=== PATIENT | male | born 1965 | race Caucasian/White ===

== ENCOUNTER → 2021-11-06 11:52 | Outpatient (CLI) | payer BC, SELFPAY ==
--- NOTE | 2021-11-06 11:55 | DI.RAD.S_ITS ---
PROCEDURE: XR FOREARM RT 2V INDICATIONS: fall, right extremity pain TECHNIQUE: 2 views of the forearm were acquired. COMPARISON: None. FINDINGS: Bones: No fractures or dislocations. No suspicious bony lesions. Soft tissues: No suspicious soft tissue calcifications or masses. IMPRESSION: No forearm fracture or dislocation. Dictated by: Dwayne Hall M.D. on 11/06/2021 at 13:07 Approved by: Dwayne Hall M.D. on 11/06/2021 at 13:07
--- NOTE | 2021-11-06 11:55 | DI.RAD.S_ITS ---
PROCEDURE: XR WRIST RT MIN 3V INDICATIONS: fall, right extremity pain TECHNIQUE: 3 views of the wrist were acquired. COMPARISON: None. FINDINGS: Bones: No fractures or dislocations. No suspicious bony lesions. Scaphoid view: Scaphoid is grossly intact. Soft tissues: No suspicious soft tissue calcifications. IMPRESSION: No wrist fracture or dislocation. Dictated by: Dwayne Hall M.D. on 11/06/2021 at 13:06 Approved by: Dwayne Hall M.D. on 11/06/2021 at 13:07
== END ==
PROVIDERS: PCP Student in an Organized Health Care Education/Training Program; Referring Provider Nurse Practitioner Family; Visit Provider Nurse Practitioner Family
DX: M79.631 Pain in right forearm (principal)
CPT/HCPCS: 73090; 73110

== ENCOUNTER 2024-04-18 08:46 | Day surgery (SDC) | payer BC, SELFPAY ==
--- NOTE | 2024-04-18 | PATH_ITS ---
[facility] Accession Number: [id number] No. of containers..04 Tissue . 01 Material submitted: . PART A: gastrointestinal site - ANTRUM PART B: gastrointestinal site - GASTRIC POLYP PART C: colon - CECUM PART D: colon - DESCENDING BIOPSY . 01 Diagnosis: A. Stomach, antrum, biopsy: Antral gastric mucosa with unremarkable histology. No H. Pylori like organisms identified (on the H/E- stained sections). Negative for gastritis, intestinal metaplasia, dysplasia, or malignancy. -- B. stomach, polyp, biopsy: Histologic features suggestive of fundic gland polyp. No H. Pylori like organisms identified (on the H/E- stained sections). Negative for gastritis, intestinal metaplasia, dysplasia, or malignancy. -- C. Colon, cecum, biopsy: Benign colonic mucosa with mild active colitis and benign lymphoid aggregate. Negative for chronic colitis, granuloma, dysplasia, or malignancy. See comment. --- D. Colon, descending, biopsy: Benign colonic mucosa with benign lymphoid aggregate. Negative for microscopic colitis, dysplasia, or malignancy. . Comment for part C: The histologic findings are suggestive of inflammatory polyp in the right colonoscopic setting. TXN 04/21/2024 [facility]2 Local . 01 Electronically signed: . Cande Purdy MD, Pathologist NPI- [id number] . 01 Gross description: . A. Received in formalin with two patient identifiers and antrum, is a single ramon soft tissue fragment, 0.4 cm in greatest dimension. Submitted in A1. B. Received in formalin with two patient identifiers and gastric polyp are two ramon soft tissue fragments, 0.2 to 0.3 cm in greatest dimension. Submitted entirely in B1. C. Received in formalin with two patient identifiers and cecum, is a single ramon soft tissue fragment, 0.4 cm in greatest dimension. Submitted in C1. D. Received in formalin with two patient identifiers and descending, are two ramon soft tissue fragments, 0.2 to 0.5 cm in greatest dimension. Submitted entirely in D1. ([id number]) /MRV 04/19/2024 1452 Local . 01 Pathologist provided ICD-10: R10.13 . 01 CPT . 279937, 909149, 273002, 211864 Specimen Comment: A courtesy copy of this report has been sent to [phone] Performed at: [address] [address], [place], [place] [id number] MD Naif Grant MD Phone: [phone]
--- NOTE | 2024-04-18 09:13 | PM.HP.1 ---
History of Present Illness History of Present Illness Date Patient Seen: 04/18/24 Time Patient Seen: 09:13 Chief complaint: EGD & Colonoscopy w/poss bx's Narrative: Here for EGD and colonoscopy. I reviewed the recent clinic note by . The patient has had some improvement on b.i.d. PPI but continues to get occasional breakthrough pyrosis in the mid chest. He reports 2 prior colonoscopies. The 1st had a polyp with a 3 year follow-up exam. At that exam no polyps were found but he was recommended to come back in 5 years. 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) other: mentions his OA is from years of moutain biking Smoking Status: Never smoker alcohol intake: current (1 drink weekly) substance use type: does not use Meds Home Medications and Allergies Home Medications Medication Instructions Recorded Confirmed Type No Known Home Medications 11/06/21 History Allergies Allergy/AdvReac Type Severity Reaction Status Date / Time No Known Drug Allergies Allergy Verified 11/06/21 11:34 Review of Systems Review of Systems ROS: Yes All systems reviewed with the patient and are negative except as otherwise documented Exam Const General: cooperative HENMT Head: normal to inspection Eyes General: appearance normal, both eyes and all related structures Neck Neck: normal visual inspection Chest Chest: normal inspection of the chest Resp Effort & Inspection: normal respiratory effort Cardio Rate: regular rate GI Inspection: normal to inspection Skin General: no rashes or lesions noted Neuro General: patient alert and patient awake Extrem General: normal to inspection and no pedal edema Psych Appearance: grossly normal Assessment & Plan Assessment & Plan narrative: 59-year-old male with refractory reflux symptoms and a personal history of colon polyps. EGD and colonoscopy are pursued today.
--- NOTE | 2024-04-18 09:15 | PM.PREOP ---
Pre-operative Note Interval Note History & Physical reviewed/Exam performed by Physician: Yes Changes to H&P: Yes ASA Class (for procedural sedation): II
[2024-04-18 09:19] VITALS: BP 139/87; PULSE 77; RESP 17; TEMP 36.6; O2SAT 96
[2024-04-18] MEDS: LACTATED RINGERS 1,000 ML 42 ML IV (09:30)
--- NOTE | 2024-04-18 10:36 | P.OP.EGD&C_ITS ---
Operative Date/Time/Diagnoses Date of procedure: 04/18/24 Time of procedure: 10:37 Pre-op diagnosis: Here for refractory heartburn symptoms and a personal history of colon polyps. Post-op diagnosis: same Procedure & Clinicians Study performed: EGD with biopsies and colonoscopy with cold snare polypectomy and cold forceps biopsies Same procedure as scheduled: Yes Indications: History of refractory heartburn symptoms and personal history of colon polyps Surgeon: Can Rosado Procedure Notes SCOAP/Timeout: Done Procedure in detail: After the risks and benefits were explained, written and verbal informed consent was obtained. The patient was brought into the procedure room and placed into the left lateral decubitus position. Please see anesthesia notes for sedation details. The scope was introduced into the mouth through the bite block and advanced under direct visualization to the 2nd portion of the duodenum. The scope was slowly withdrawn carefully examining the mucosa for any defects or lesions. Retroflexed views were accomplished in the stomach. The stomach was decompressed, the scope was then removed from the patient who tolerated the procedure well. The patient was then turned around. A digital rectal examination was accomplished. The scope was introduced into the rectum and advanced to the cecum as identified by the appendiceal orifice and ileocecal valve. The scope was slowly withdrawn to carefully examine the mucosa for any defects or lesions. Multiple direct views were made through the dentate line for exclusion of pathology. The colon was decompressed and the scope removed from the patient who tolerated the procedure well. Adult colonoscope Bowel prep adequate Scope withdrawal time: 14 minutes Sedation minutes: 47 Complications: none Impression: 1. Duodenal: This was normal from the bulb through to the 2nd portion. 2. Stomach: No ulcers. No mass lesions. No outlet obstruction. Mild gastropathy was identified in the antrum and biopsies were taken for exclusion of H pylori. There were a few diminutive benign-appearing polyps in the prox imal stomach. A couple of these were removed with cold forceps for a collections representative sample. Retroflexed views of the LES were otherwise unremarkable. 3. Esophagus: The squamocolumnar junction correlated with the top of the gastric folds. The GEJ was at approximately 44 cm from the incisors. The patient had a sharp well demarcated normal-appearing Z-line right at the GE junction. There was no sign of stricture. No sign of esophagitis. The remainder of the esophagus was visually normal. 4. Colon: Patient had a slightly redundant colon. In the cecum there was a possible subtle polyp measuring 5 mm that was addressed with cold snare. In the proximal descending colon right near the splenic flexure there was a subtle nodular erosion. I did not appreciate any obvious adenomatous features but a couple of biopsies were taken from this location for histopathologic analysis. No other significant pathology was appreciated throughout. Grade 1 hemorrhoids were noted on direct views. Endoscopic diagnosis 1. Minimal gastropathy 2. Diminutive gastric polyps 3. Otherwise visually normal EGD 4. Diminutive cecal polyp 5. Descending colon eroded subtle nodule-biopsied 6. Minimal hemorrhoids Post-procedure Plan for aftercare: 1. Await histology. 2. Follow up GI clinic. 3. Continue anti-reflux therapy. 4. The timing of repeat colonoscopy will be contingent on biopsy results. Disposition: PACU
[2024-04-18 10:39] VITALS: BP 104/73; PULSE 70; RESP 16; TEMP 36.4; O2SAT 98
[2024-04-18 10:44] VITALS: BP 111/78; PULSE 68; RESP 16; O2SAT 97
[2024-04-18 10:49] VITALS: BP 108/78; PULSE 67; RESP 16; O2SAT 97
[2024-04-18 10:53] VITALS: BP 108/77; PULSE 68; RESP 14; O2SAT 99
== END 2024-04-18 11:00 | disposition home or self-care (01) ==
PROVIDERS: PCP Physician Assistant; Referring Provider Internal Medicine Gastroenterology; Visit Provider Internal Medicine Gastroenterology
PROC: 0DJ08ZZ Inspection of Upper Intestinal Tract, Via Natural or Artificial Opening Endoscopic (ICD-10-PCS; CPT 43235; principal; 2024-04-18 10:00)
PROC: 0DJD8ZZ Inspection of Lower Intestinal Tract, Via Natural or Artificial Opening Endoscopic (ICD-10-PCS; CPT 45378; 2024-04-18 10:00)
DX: Z12.11 Encounter for screening for malignant neoplasm of colon (principal); Z86.010 Personal history of colon polyps; R12 Heartburn; K31.9 Disease of stomach and duodenum, unspecified; K31.7 Polyp of stomach and duodenum; K64.8 Other hemorrhoids; K52.9 Noninfective gastroenteritis and colitis, unspecified
CPT/HCPCS: 45385; 43239; J2704

== ENCOUNTER → 2024-08-08 08:39 | Outpatient (CLI) | payer BC, SELFPAY ==
--- NOTE | 2024-08-08 08:42 | DI.RAD.S_ITS ---
PROCEDURE: XR FOOT RT MIN 3V INDICATIONS: BUNION TECHNIQUE: 4 views of the foot were acquired. COMPARISON: None. FINDINGS: Bones: No fracture or dislocation. Hallux valgus deformity of the MTP joint of the 1st toe with associated bunion. Mild degree of joint space narrowing of the MTP joint of the 2nd toe. Joint spaces of the right foot appear otherwise unremarkable. No suspicious bony lesions. Soft tissues: No tibiotalar joint effusion. Achilles tendon appears normal. IMPRESSION: Hallux valgus deformity of MTP joint of the 1st toe with associated bunion. No acute osseous abnormality. Dictated by: Kevon Jaimes M.D. on 08/08/2024 at 10:35 Approved by: Kevon Jaimes M.D. on 08/08/2024 at 10:37
--- NOTE | 2024-08-08 08:42 | DI.RAD.S_ITS ---
PROCEDURE: XR FOOT LT MIN 3V INDICATIONS: BUNION TECHNIQUE: 4 views of the foot were acquired. COMPARISON: None. FINDINGS: Bones: No acute fracture or dislocation. Mild hallux valgus deformity of the MTP joint of the great toe. Degenerative changes involving the interphalangeal joint of the great toe. Small osteochondroma arising from the lateral aspect of the 1st metatarsal. A slightly smaller osteochondroma is seen involving the medial aspect of the base of the distal phalanx of the great toe. Soft tissues: No tibiotalar joint effusion. Achilles tendon appears normal. IMPRESSION: 1. Mild hallux valgus deformity of the MTP joint of the great toe. 2. Small osteochondromas arising from the lateral aspect of the 1st metatarsal and smaller osteochondroma involving the medial aspect of the base of distal phalanx of the great toe. Dictated by: Kevon Jaimes M.D. on 08/08/2024 at 10:37 Approved by: Kevon Jaimes M.D. on 08/08/2024 at 10:43
== END ==
LOC: RAD 08:40
PROVIDERS: PCP Physician Assistant; Referring Provider Podiatrist Foot & Ankle Surgery; Visit Provider Podiatrist Foot & Ankle Surgery
DX: M20.12 Hallux valgus (acquired), left foot (principal); M20.11 Hallux valgus (acquired), right foot; M21.611 Bunion of right foot; M21.612 Bunion of left foot; D16.32 Benign neoplasm of short bones of left lower limb; D16.31 Benign neoplasm of short bones of right lower limb
CPT/HCPCS: 73630

== ENCOUNTER 2024-10-03 12:57 | Day surgery (SDC) | payer BC, SELFPAY ==
[2024-09-30 08:28] VITALS: BMI 26.2
--- NOTE | 2024-10-03 09:52 | PM.PREOP ---
Pre-operative Note Interval Note History & Physical reviewed/Exam performed by Physician: Yes Changes to H&P: No
--- NOTE | 2024-10-03 09:52 | PM.HP.1 ---
History of Present Illness History of Present Illness Chief complaint: R foot Narrative: 59 year old male here for right foot pain. Incidental finding of bone tumors observed on X-rays of both feet. He denies any family history of bone cancers. He would like to proceed with correction of bunion and joint instability as the pain inhibits his activities of daily living. He reports that it was initially managed by increasing shoe size, but it now affects walking with overlapping of the second toe. He describes the pain as deep, similar to a broken toe, with a combination of throbbing and sharp sensations. The pain is not localized and is accompanied by swelling, making it feel like walking on a water balloon. Patient denies n/v/f/c/sob/cp. [facility] Medical History Chronic eczematous otitis externa of right ear Elevated BP without diagnosis of hypertension Snoring Fatigue due to sleep pattern disturbance Osteoarthritis involving multiple joints on both sides of body Allergic rhinitis Obstructive sleep apnea, adult BPH (benign prostatic hyperplasia) GERD (gastroesophageal reflux disease) Surgical History (Updated 09/30/24 @ 08:46 by Madison Velásquez RN) Hx of colonoscopy (04/18/24) History of tonsillectomy Family History Father Blood clotting disorder Social History household members: spouse lives independently: Yes caregiver/support person: No housing: house 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) other: mentions his OA is from years of moutain biking Smoking Status: Never smoker alcohol intake: current substance use type: does not use Meds Home Medications and Allergies Home Medications Medication Instructions Recorded Confirmed Type losartan 25 mg tablet 25 mg PO DAILY 04/18/24 04/18/24 History omeprazole 20 mg tablet,delayed 20 mg PO DAILY 04/18/24 04/18/24 History release Allergies Allergy/AdvReac Type Severity Reaction Status Date / Time No Known Drug Allergies Allergy Verified 11/06/21 11:34 Exam Extrem Right lower extremity: foot Other: Right foot: Moderate hallux abducto valgus with enlarged medial eminence and overriding toe 2. Hypermobile ray 1. Moderate heel valgus and collapsed medial longitudinal arch. Assessment & Plan Assessment & Plan narrative: 1. Right foot flail tarsometatarsal joint(s) 2. Right foot bunion 3. Right foot osteochondroma Patient seen and evaluated. Surgical plan: right foot tarsometatarsal single joint arthrodesis with bone graft harvest, bunion correction, and excision of benign bone tumor. Risks and benefits of the procedure discussed with all questions answered to patient's satisfaction. Reviewed potential complications that may include but not limited to the following: DVT, failure to resolve all symptoms, infection, nerve injury, bleeding, recurrence, or wound. Reviewed surgical technique and general aftercare protocols. All questions answered to patient's satisfaction with no guarantees made. Patient verbalized understanding and agreed with surgical plan. RTC for post-op. Time-Based Coding :: [TOTAL MINUTES] spent with patient and on the chart (including review of chart, obtaining history, exam, reviewing outside data, placing orders, documenting exam and treatment plan, and counseling patient) on [DATE].
[2024-10-03 13:19] VITALS: BP 157/91; PULSE 80; RESP 17; TEMP 37.1; O2SAT 98; BMI 24.4
[2024-10-03] MEDS: LACTATED RINGERS 1,000 ML 100 ML IV ×2 (13:47→13:50)
[2024-10-03] MEDS: ACETAMINOPHEN 325 MG TABLET 975 MG PO (13:49)
[2024-10-03] MEDS: CEFAZOLIN 2 GM/100 ML PREMIX 100 ML IV (14:40)
--- NOTE | 2024-10-03 15:13 | SUR.OPER ---
Supine on padded OR bed, head on pillow, arms secured on padded arm boards at <90 degrees abduction, legs uncrossed, safety belt at thigh, tape over blanket over lower legs.
[2024-10-03] MEDS: VANCOMYCIN 1,000 MG VIAL 1000 MG TOP (18:00)
[2024-10-03 18:53] VITALS: BP 133/90; PULSE 92; RESP 15; TEMP 36.3; O2SAT 99
[2024-10-03 18:58] VITALS: BP 119/83; PULSE 94; RESP 10; O2SAT 97
[2024-10-03 19:03] VITALS: BP 126/87; PULSE 94; RESP 11; O2SAT 97
[2024-10-03 19:07] VITALS: BP 127/88; PULSE 91; RESP 15; O2SAT 97
[2024-10-03 19:17] VITALS: BP 135/91; PULSE 83; RESP 15; TEMP 36.3; O2SAT 97
[2024-10-03] MEDS: OXYCODONE IR 5 MG TABLET PO (19:19)
--- NOTE | 2024-10-13 18:51 | PM.OP.1 ---
Operative Date/Time/Diagnoses Date of procedure: 10/03/24 Pre-op diagnosis: 1. Right foot first tarsometatarsal flail joint 2. Right foot bunion Post-op diagnosis: same Procedure & Clinicians Procedure: 1. Right foot first tarsometatarsal arthrodesis 2. Right foot bunion correction Same procedure as scheduled: Yes Indications: Chronic discomfort with progressive worsening Surgeon: Main Peters Click Yes if Unassisted: Yes Anesthesia Type: General Operative Notes Findings: Consistent with diagnosis Closure Type: primary Specimen(s): none sent Estimated Blood Loss (mL): 50 Tourniquet time (min): 150 Procedure in detail: The patient was brought to the operating room and placed on the operating room table in the supine position. Regional anesthesia was administered by anesthesiologist. A thigh tourniquet was applied over well-padded surface, which was set and inflated to 300 mmHg prior to incision. The right lower limb was then prepped and draped in the usual sterile fashion, followed by official timeout with the surgical team all in agreement. Attention was directed to the right midfoot at dorsal first ray where a linear incision was using a #15 scalpel. Dissection was carried out in layers from skin down to the joint and bone with care for retraction and protection of neurovascular structures. The first tarsometatarsal joint was identified and sharply released. Attention was then directed to the right forefoot dorsal first ray where a linear incision was made over lateral first metatarsophalangeal joint using a # 15 scalpel for lateral release of suspensory ligament. Following manufacture instructions, frontal plane was rotated until anatomical alignment was restored. Appropriate cuts of the first tarsometatarsal joint were then made using a sagittal saw under power, and the the joint was prepared via fenestration and addition of bone putty. Compression was then achieved using olive wires. After adequate position was achieved, the arthrodesis was completed with double plating and verified using fluoroscopy. Attention was then directed back to the right forefoot. A linear incision was made using # 15 scalpel over dorsal hallux. A medal based wedge osteotomy of the proximal phalanx was then performed, and the gap was closed using a 2.5 mm headless screw and verified using fluoroscopy. All surgical sites were irrigated using copious saline and closed from deep to superficial in layers using 2-0 vicryl, 3-0 vicryl, 4-0 vicryl, 3-0 nylon, and 4-0 nylon. Vancoycin powder was added prior to full closure. Right foot was cleaned, and sterile dressing was applied over incision site with iodine soaked Adaptic, gauze, abdominal pad, and Kerlix. A posterior splint was made and secured with JOSE JUAN bandages. Patient tolerated procedure without complication and was transferred to post-anesthesia care unit with all vital signs stable. Complications: none Post-operative Condition: stable Disposition: same day surgery Plan for aftercare: Non-weight bearing to surgical limb. Elevate above heart. Ice behind knee. Keep dressing clean, dry, and intact.
== END 2024-10-03 19:28 | disposition home or self-care (01) ==
PROVIDERS: PCP Physician Assistant; Referring Provider Podiatrist Foot & Ankle Surgery; Visit Provider Podiatrist Foot & Ankle Surgery
PROC: (CPT 28740; principal; 2024-10-03 14:15)
PROC: 0QBN0ZZ Excision of Right Metatarsal, Open Approach (ICD-10-PCS; CPT 28292; 2024-10-03 14:15)
DX: M25.271 Flail joint, right ankle and foot (principal); M21.611 Bunion of right foot; D16.31 Benign neoplasm of short bones of right lower limb; G89.18 Other acute postprocedural pain
CPT/HCPCS: 28740; 28298; 64450; C1713; J0690; J1100; J2250; J2405; J2704; J3010

== ENCOUNTER → 2024-10-18 | Outpatient (CLI) | payer BC, SELFPAY ==
--- NOTE | 2024-10-18 | DI.RAD.S_ITS ---
PROCEDURE: XR FOOT RT MIN 3V INDICATIONS: Pain in right foot TECHNIQUE: 3 views of the foot were acquired. COMPARISON: [facility], CR, XR FOOT RT MIN 3V, 08/08/2024, 8:52. [facility], CR, XR FOOT LT MIN 3V, 08/08/2024, 8:52. FINDINGS: Bones: Interval 1st TMT joint arthrodesis with expected the positioning of plate and screw fixation hardware. Interval 1st proximal phalangeal osteotomy with placement of a fully threaded micro fixation screw. Expected bony alignment. Soft tissues: No tibiotalar joint effusion. Achilles tendon appears normal. Soft tissue swelling adjacent to the medial aspect of the 1st MTP joint. IMPRESSION: Interval 1st TMT joint arthrodesis and osteotomy of the 1st proximal phalangeal base. Dictated by: Krishna Hairston [facility] Interpreted: Jay Arevalo MD on 10/18/2024 at 14:00 Transcribed by: NOAH on 11/04/2024 at 12:27 Approved by: Halina Basurto M.D. on 11/10/2024 at 21:32
== END ==
PROVIDERS: PCP Physician Assistant; Referring Provider Podiatrist Foot & Ankle Surgery; Visit Provider Podiatrist Foot & Ankle Surgery
DX: M79.671 Pain in right foot (principal); Z47.89 Encounter for other orthopedic aftercare
CPT/HCPCS: 73630

== ENCOUNTER → 2024-10-31 13:39 | Outpatient (CLI) | payer BC, SELFPAY ==
--- NOTE | 2024-10-31 13:42 | DI.RAD.S_ITS ---
PROCEDURE: XR FOOT RT MIN 3V INDICATIONS: FOOT PAIN TECHNIQUE: 3 views of the foot were acquired. COMPARISON: [facility], CR, XR FOOT RT MIN 3V, 10/18/2024, 12:01. [facility], CR, XR FOOT LT MIN 3V, 08/08/2024, 8:52. FINDINGS: Bones: 1st tarsometatarsal arthrodesis, with normal alignment and no hardware complication. 1st proximal phalanx osteotomy, without hardware complication. Soft tissues: No tibiotalar joint effusion. Achilles tendon appears normal. IMPRESSION: Stable arthrodesis and osteotomy of the 1st digit, without hardware complication. Dictated by: Luis Tellez M.D. on 10/31/2024 at 16:49 Approved by: Luis Tellez M.D. on 10/31/2024 at 16:49
== END ==
PROVIDERS: PCP Physician Assistant; Referring Provider Podiatrist Foot & Ankle Surgery; Visit Provider Podiatrist Foot & Ankle Surgery
DX: M79.671 Pain in right foot (principal); Z98.1 Arthrodesis status
CPT/HCPCS: 73630

== ENCOUNTER → 2024-11-22 10:03 | Outpatient (CLI) | payer BC, SELFPAY ==
--- NOTE | 2024-11-22 10:05 | DI.RAD.S_ITS ---
PROCEDURE: XR FOOT RT MIN 3V INDICATIONS: FOOT PAIN TECHNIQUE: 3 views of the foot were acquired. COMPARISON: [facility], CR, XR FOOT RT MIN 3V, 10/31/2024, 13:49. FINDINGS: Bones: Single screw transfixes a mid 1st proximal phalangeal osteotomy which is anatomically aligned. There is mild bridging across the osteotomy which partially obscures this region. Pes planus noted Joints: 1st MTT arthrodesis provided by malleable plate and screws shows anatomic alignment. Joint line remains visualized that no evidence of fusion across the joint. Probable medial 1st metatarsal shaving of also appreciated . Moderate degenerative change noted in the 2nd and 5th 5th PIP joints Soft tissues: No soft tissue abnormality. IMPRESSION: Partial osseous bridging across 1st proximal phalangeal osteotomy which has progressed from previous x-ray. It is anatomically aligned. First MTT arthrodesis anatomic alignment. Fusion is incomplete Degeneration Dictated by: Rogerio Mckeon M.D. on 11/23/2024 at 10:31 Approved by: Rogerio Mckeon M.D. on 11/23/2024 at 10:34
== END ==
LOC: RAD 10:04
PROVIDERS: PCP Physician Assistant; Referring Provider Podiatrist Foot & Ankle Surgery; Visit Provider Podiatrist Foot & Ankle Surgery
DX: M79.671 Pain in right foot (principal); Z47.89 Encounter for other orthopedic aftercare; Z98.1 Arthrodesis status
CPT/HCPCS: 73630

== ENCOUNTER → 2025-01-10 09:22 | Outpatient (CLI) | payer BC, SELFPAY ==
--- NOTE | 2025-01-10 09:24 | DI.RAD.S_ITS ---
PROCEDURE: XR FOOT RT MIN 3V INDICATIONS: Encounter for orthopedic aftercare following surgical amputa TECHNIQUE: 3 views of the foot were acquired. COMPARISON: [facility], CR, XR FOOT RT MIN 3V, 11/22/2024, 10:04. FINDINGS: Bones: Stable appearing postsurgical changes status post 1st proximal phalangeal osteotomy and 1st tarsal metatarsal arthrodesis without evidence of hardware complication. No suspicious bony lesions. Soft tissues: No tibiotalar joint effusion. Achilles tendon appears normal. IMPRESSION: No evidence of hardware failure or acute bony abnormality. Postsurgical change noted. Dictated by: Amado Valdes M.D. on 01/11/2025 at 1:56 Approved by: Amado Valdes M.D. on 01/11/2025 at 1:57
== END ==
LOC: RAD 09:23
PROVIDERS: PCP Physician Assistant; Referring Provider Podiatrist Foot & Ankle Surgery; Visit Provider Podiatrist Foot & Ankle Surgery
DX: Z47.89 Encounter for other orthopedic aftercare (principal)
CPT/HCPCS: 73630